=== PATIENT | female | born 2000 | race Two or more races ===

== ENCOUNTER 2021-12-12 00:28 | Emergency (ER) | payer MEDICAID | END 2021-12-12 04:34 | disposition left against medical advice (07) | LOC: ER 00:28 | DX: Z53.21 Procedure and treatment not carried out due to patient leaving prior to being seen by health care provider (principal) ==

== ENCOUNTER 2022-05-28 01:32 | Observation (INO) | payer MEDICAID, OTHER ==
[~2022-05-28] VITALS: Ht 167.6 cm; Wt 83.0 kg
[2022-05-28] MEDS ORDERED: PREN-176 PO (02:12)
== END 2022-05-28 06:20 | disposition home or self-care (01) ==
LOC: 8 EST LDRP 01:32
PROVIDERS: ADMIT Obstetrics & Gynecology; ATTEND Obstetrics & Gynecology
DX: O26.893 Other specified pregnancy related conditions, third trimester (principal); N89.8 Other specified noninflammatory disorders of vagina; O99.891 Other specified diseases and conditions complicating pregnancy; M54.9 Dorsalgia, unspecified; O36.8130 Decreased fetal movements, third trimester, not applicable or unspecified; Z3A.39 39 weeks gestation of pregnancy
CPT/HCPCS: 59025; 76815; 76818; G0378; 99281

== ENCOUNTER 2022-05-31 10:55 | Inpatient (IN) | payer OTHER ==
[~2022-05-31] VITALS: Ht 167.6 cm; Wt 84.4 kg
[~2022-05-31 10:55] MED LIST: PREN-176 PO
[2022-05-31] MEDS ORDERED: LIDOCAINE HCL 1% 30ML VIAL (10MG/ML) INFIL SCH (12:00)
[2022-05-31] MEDS ORDERED: NALOXONE HCL 0.4 MG/ML 1ML VIAL IM PRN (12:00)
[2022-05-31] MEDS ORDERED: PENICILLIN G POTASSIUM 5 MMU in DEXT 5% WATER 100 ML IV SCH (12:00)
[2022-05-31] MEDS ORDERED: BUTORPHANOL TARTRATE 2 MG/ML VIAL IV PRN (12:00)
[2022-05-31] MEDS: OXYTOCIN 30 UNITS/500ML NS PMX 500 ML IV SCH (12:26)
[2022-05-31 12:36] LABS: CLARITY URINE CLEAR (CLEAR); COLOR URINE YELLOW (YELLOW); KETONES URINE NEGATIVE (NEGATIVE); LEUKOCYTE ESTERASE URINE TRACE (NEGATIVE); NITRITE URINE NEGATIVE (NEGATIVE); OCCULT BLOOD URINE 2+ (NEGATIVE); PROTEIN URINE NEGATIVE (NEGATIVE); UROBILINOGEN URINE 0.2 E.U./dL (0.2-1.0)
[2022-05-31] MEDS: LACTATED RINGERS 1,000 ML IV SCH ×3 (12:37→20:59)
[2022-05-31 12:39] LABS: BASOPHILS % 0.3 % (0.0-2.0); EOSINOPHILS % 0.7 % (0.0-5.0); HEMATOCRIT. 38.8 % (36.0-48.0); HEMOGLOBIN. 13.3 g/dL (12.0-16.0); LYMPHOCYTES % 19.5 % (20.0-50.0); MEAN CORPUSCULAR HEMOGLOBIN 30.9 pg (28.0-32.0); MEAN PLATELET VOLUME 9.7 fl (7.4-10.4); MONOCYTES % 7.5 % (2.0-8.0); PLATELET 193 x1000/uL (130-400); RED BLOOD CELL COUNT 4.31 mill/uL (4.2-5.4); RED CELL DISTRIBUTION WIDTH 12.9 % (11.6-14.6)
[2022-05-31 13:15] LABS: INR 0.9; PARTIAL THROMBOPLASTIN TIME 26.5 sec (23.4-31.0); PROTHROMBIN TIME 9.8 sec (9.6-11.0)
[2022-05-31 13:28] LABS: HEPATITIS B SURFACE ANTIGEN NEGATIVE
[2022-05-31] MEDS ORDERED: ROPIVACAINE HCL/PF EPIDURAL 200 ML EPI ONE (13:28)
[2022-05-31] MEDS ORDERED: METOCLOPRAMIDE HCL 10MG/2ML VIAL IV PRN (13:30)
[2022-05-31] MEDS ORDERED: ONDANSETRON HCL 4MG/2ML INJ IV PRN (13:30)
[2022-05-31] MEDS ORDERED: ROPIVACAINE HCL/PF EPIDURAL 200 ML EPI SCH (13:30)
[2022-05-31 13:53] LABS: *AMPHETAMINES SCREEN URINE NEGATIVE (NEGATIVE); *BARBITURATES SCREEN URINE NEGATIVE (NEGATIVE); *BENZODIAZEPINES SCREEN URINE NEGATIVE (NEGATIVE); *COCAINE SCREEN URINE NEGATIVE (NEGATIVE); CANNABINOID URINE SCREEN NEGATIVE (NEGATIVE); METHADONE URINE SCREEN NEGATIVE (NEGATIVE); OPIATES URINE SCREEN NEGATIVE (NEGATIVE); PHENCYCLIDINE URINE SCREEN NEGATIVE (NEGATIVE)
[2022-05-31] MEDS ORDERED: PENICILLIN G POTASSIUM 2.5 MMU in DEXTROSE 5% WATER 50 ML IV SCH (17:00)
[2022-06-01] MEDS: OXYTOCIN 30 UNITS/500ML NS PMX 500 ML IV SCH (03:07)
[2022-06-01] MEDS ORDERED: RHO(D) IMMUNE GLOBULIN 300 MCG/SYR IM PRN (04:00)
[2022-06-01] MEDS ORDERED: IBUPROFEN 400MG TABLET PO PRN (04:00)
[2022-06-01] MEDS ORDERED: METHYLERGONOVINE MALEATE 0.2 MG/ML IM PRN (04:00)
[2022-06-01] MEDS ORDERED: OXYTOCIN 30 UNITS/500ML NS PMX 500 ML IV SCH (04:00)
[2022-06-01] MEDS ORDERED: LANOLIN OINT 7GM TUBE TOP PRN (04:00)
[2022-06-01] MEDS: IBUPROFEN 800MG TABLET PO PRN ×2 (04:21→17:04)
[2022-06-01 04:40] VITALS: BP 132/74
[2022-06-01 05:30] VITALS: BP 125/64
[2022-06-01] MEDS ORDERED: BENZOCAINE/LANOLIN/ALOE VERA SPRAY TOP PRN (06:45)
[2022-06-01] MEDS ORDERED: TETANUS, DIPHTHERIA, PERTUSSIS VAC/PF 0.5ML (>10YR OLD) IM ONE (07:45)
[2022-06-01 08:00] VITALS: BP 111/66
[2022-06-01] MEDS: PRENATAL VIT/FE FUMARATE/FA TABLET PO SCH (09:07)
[2022-06-01 16:00] VITALS: BP 110/53
[2022-06-01 20:00] VITALS: BP 109/58
[2022-06-02 04:00] VITALS: BP 116/69
[2022-06-02 07:22] LABS: BASOPHILS % 0.3 % (0.0-2.0); EOSINOPHILS % 0.3 % (0.0-5.0); HEMATOCRIT. 26.3 % (36.0-48.0); HEMOGLOBIN. 8.8 g/dL (12.0-16.0); LYMPHOCYTES % 14.1 % (20.0-50.0); MEAN CORPUSCULAR HEMOGLOBIN 31.1 pg (28.0-32.0); MEAN CORPUSCULAR VOLUME 92.9 fL (81.0-99.0); MEAN PLATELET VOLUME 9.4 fl (7.4-10.4); MONOCYTES % 6.1 % (2.0-8.0); NEUTROPHILS % 79.2 % (40.0-76.0); PLATELET 163 x1000/uL (130-400); RED BLOOD CELL COUNT 2.83 mill/uL (4.2-5.4); RED CELL DISTRIBUTION WIDTH 13.2 % (11.6-14.6)
[2022-06-02 08:00] VITALS: BP 117/70
[2022-06-02] MEDS: PRENATAL VIT/FE FUMARATE/FA TABLET PO SCH (08:27)
[2022-06-02] MEDS: IBUPROFEN 800MG TABLET PO PRN (11:30)
[2022-06-02 16:00] VITALS: BP 98/45
[2022-06-02 20:00] VITALS: BP 120/74
[2022-06-03] MEDS: IBUPROFEN 800MG TABLET PO PRN (03:56)
[2022-06-03 04:00] VITALS: BP 111/67
[2022-06-03 08:00] VITALS: BP 123/71
[2022-06-03] MEDS: PRENATAL VIT/FE FUMARATE/FA TABLET PO SCH (08:29)
== END 2022-06-03 15:00 | disposition home or self-care (01) | DRG 560 ==
LOC: OBSVTOIN 10:55 → 8 EST LDRP 10:55 → 8EST 06-01 05:09
PROVIDERS: ADMIT Obstetrics & Gynecology; ATTEND Obstetrics & Gynecology
PROC: 10E0XZZ Delivery of Products of Conception, External Approach (ICD-10-PCS; principal; 2022-05-31)
PROC: 0KQM0ZZ Repair Perineum Muscle, Open Approach (ICD-10-PCS; 2022-05-31)
DX: O69.81X0 Labor and delivery complicated by cord around neck, without compression, not applicable or unspecified (principal); Z37.0 Single live birth; D62 Acute posthemorrhagic anemia; Z20.822 Contact with and (suspected) exposure to COVID-19; O48.0 Post-term pregnancy; Z3A.40 40 weeks gestation of pregnancy; O70.1 Second degree perineal laceration during delivery
CPT/HCPCS: 36415; 80305; 81003; 85025; 86592; 86703; 86762; 86850; 86900; 87340; 87426; 90715; 99281; J0595; J2405; J2540; J2795; J7060; J7120; A4315; J2590